=== PATIENT | female | born 1945 | race Caucasian/White ===

== ENCOUNTER → 2023-12-15 11:17 | Outpatient (REF) | payer MEDICARE, SELFPAY | LOC: HWRAD 11:17 | PROVIDERS: ATTENDING PHYSICIAN Physician Assistant Medical; FAMILY PHYSICIAN Internal Medicine | DX: M85.80 Other specified disorders of bone density and structure, unspecified site (principal); Z00.00 Encounter for general adult medical examination without abnormal findings; M85.89 Other specified disorders of bone density and structure, multiple sites | CPT/HCPCS: 77063; 77067; 77080 ==

== ENCOUNTER 2024-01-01 16:26 | Inpatient (IN) | payer MEDICARE, SELFPAY ==
[2024-01-01 08:04] VITALS: BP 134/76
[2024-01-01 08:15] LABS: % Basophils 0.1 % (0-2); % Immature Granulocytes 0.6 % (0-0.5); % Lymphocytes 3.4 % (20.5-51.1); % Monocytes 6.3 % (1.7-9.3); % Neutrophils 89.6 % (42.2-75.2); Absolute Immature Granulocytes 0.1 10^3/uL (0-0.05); Absolute Lymphocytes 0.6 10^3/uL (1.2-3.4); Absolute Neutrophils 14.4 10^3/uL (1.4-6.5); Hemoglobin 13.3 g/dL (12.0-16.0); Mean Corp Hgb Conc. 34.1 g/dL (33.0-37.0); Mean Corpuscular Hgb 29.6 pg (27.0-31.0); Mean Corpuscular Volume 86.9 fL (81.0-99.0); Mean Platelet Volume 8.9 fL (7.4-10.4); Nucleated Red Blood Cells % 0 %; Platelet Count 232 10^3/uL (130-400); Red Blood Cell Count 4.49 10^6/uL (4.20-5.40); Red Cell Dist. Width 12.9 % (11.5-14.5)
[2024-01-01 08:33] LABS: ALT (SGPT) 22 U/L (0-35); AST (SGOT) 31 U/L (14-36); Albumin 4.1 g/dl (3.5-5.0); Alkaline Phosphatase 63 U/L (38-126); Blood Urea Nitrogen 24 mg/dl (7-17); Calcium 10.8 mg/dl (8.4-10.2); Carbon Dioxide 24 mmol/L (22-30); Chloride 106 mmol/L (98-107); Glucose 134 mg/dl (70-99); Lipase 46 U/L (23-300); Potassium 4.5 mmol/L (3.5-5.1); Sodium 135 mmol/L (135-145); Total Bilirubin 1.4 mg/dl (0.2-1.3); Total Protein 6.6 g/dl (6.3-8.2); eGFR 58.39
[2024-01-01 11:19] VITALS: BP 134/81
[2024-01-01] MEDS: ZOFRAN 4 MG IV (11:47)
[2024-01-01] MEDS: NSS 1000 IV ×2 (11:47→16:49)
[2024-01-01] MEDS: DILAUDID 0.5 MG IV (14:15)
[2024-01-01 14:20] VITALS: BP 128/70
--- NOTE | 2024-01-01 15:02 | ED.GENMED ---
History of Present Illness
General
Chief Complaint: Abdominal Symptoms
Source: patient
Exam Limitations: none
Time Seen by Provider: 01/01/24 11:22
Nursing documentation reviewed up to this point in time: agreed with
Travel History
Have you had any contact with someone who has COVID-19?: No
Do you have any symptoms of coronavirus? Fever > 100 degrees, chills, cough, shortness of breath, sore throat, loss of taste or smell, muscle aches, or headache?: No
History of Present Illness
History of Present Illness:
78-year-old female with past ministry of previous uterine cancer status post hysterectomy, diverticulitis presenting to the emergency department today with concerns of diarrhea abdominal pain worsening over the past 24 hours denies specific fevers.
Review of Systems
Review of Systems
Allergies reviewed?: Yes
All Other Systems: ROS reviewed and negative except as documented in HPI and ROS
Phy Exam
Physical Exam
Physical Exam:
GENERAL: Alert , in no apparent distress
EYE: pupils equal and reactive
NECK: Supple, no significant adenopathy.
ENT: o/p clr, mmm.
CARDIAC: Regular rate and rhythm .
LUNGS: Clear breath sounds bilaterally, no acute respiratory distress, no wheezes/rales/rhonchi
ABDOMEN: Left-sided abdominal pain rectal examination with red blood guaiac positive
NEUROLOGICAL: Alert and oriented, no focal neuro deficits
SKIN: Warm and dry, skin intact.
MUSCULOSKELETAL: No edema, well perfused.
PSYCH: Normal and appropriate interaction.
Course
Orders/Labs/Results
Orders:
Orders
01/01/24 08:10
Complete Blood Count/With Diff Urgent
Comprehensive Metabolic Panel Urgent
Lipase Urgent
01/01/24 11:37
CT Abd/Pel (IV only)-DH only Urgent
Comment:
Reason For Exam: left abd pain, gi bleed today
Ondansetron Injectable [Zofran] 4 mg IV NOW STA
01/01/24 11:38
0.9% Sodium Chloride 1000 ml [Nss] 1,000 ml IV BOLUS
01/01/24 11:46
Type+Screen Urgent
01/01/24 14:12
HYDROmorphone [Dilaudid] 0.5 mg IV NOW STA
01/01/24 15:01
Add On- LAB Routine
Tests Added?: lactate
Abnormal Lab Results
01/01/24
08:10
WBC 16.0 H 10^3/uL
(4.8-10.8)
Abs Immat Gran (auto) 0.1 H 10^3/uL
(0-0.05)
Absolute Neuts (auto) 14.4 H 10^3/uL
(1.4-6.5)
Absolute Lymphs (auto) 0.6 L 10^3/uL
(1.2-3.4)
Absolute Monos (auto) 1.0 H 10^3/uL
(0.1-0.6)
Immature Gran % 0.6 H %
(0-0.5)
Neutrophils % 89.6 H %
(42.2-75.2)
Lymphocytes % 3.4 L %
(20.5-51.1)
BUN 24 H mg/dl
(7-17)
Glucose 134 H mg/dl
(70-99)
Calcium 10.8 H mg/dl
(8.4-10.2)
Total Bilirubin 1.4 H mg/dl
(0.2-1.3)
01/01/24 08:10
01/01/24 08:10
Vital Signs
Initial and Last Documented VS:
Initial Vital Signs
Temp Pulse Resp BP Pulse Ox
98.0 F 91 18 134/76 99
01/01/24 08:04 01/01/24 08:04 01/01/24 08:04 01/01/24 08:04 01/01/24 08:04
Last Documented Vital Signs
Temp Pulse Resp BP Pulse Ox
98.0 F 80 18 128/70 93
01/01/24 08:04 01/01/24 14:20 01/01/24 14:20 01/01/24 14:20 01/01/24 14:20
MDM/Problems Addressed
MDM/Problems Addressed:
78-year-old female presenting to the emergency department today with concerns of left-sided abdominal pain with associated diarrhea no fevers otherwise normal vital signs reproducible discomfort to the left side of the abdomen white count elevated
to 16.0 CT scan showing colitis patient does have red blood on rectal examination guaiac positive. Additionally had tumor found to the left. Concerning the moderate bleeding that is described and seen on exam plan to for monitoring of GI bleed.
*Critical Care Note
Total Time (30-74mins, 75-104mins- exclusive of procedures): Not Applicable
ED Attending Note
-
Portions of this chart may have been created with voice recognition software.� Occasional wrong word or��sound alike� substitutions may have occurred due to the inherent limitations of voice recognition software.
Discharge Plan
Departure
Patient Disposition: Admit
Date of Disposition: 01/01/24
Time of Disposition: 15:03
Admit to: Med/Surg
Admit to doctor: Pallavi
Presentation/result/management discussed w/ accepting MD/DO: Hospitalist
Patient with high blood pressure during this ER visit?: No
Condition: Good
Covid-19: Not Applicable
Discharge Problem:
GI bleed, Colitis, Left kidney mass
Prescriptions:
No Action
Theragen Tablet
1 tab PO DAILY PRN (Reason: supplement)
amlodipine 10 mg Tablet
10 mg PO DAILY
ibuprofen [Advil] 200 mg Tablet
200 mg PO DAILYPRN PRN (Reason: mild pain)
lisinopril 5 mg Tablet
10 mg PO DAILY
biotin 5,000 mcg Tablet,Disintegrating
5,000 mcg PO DAILY
vitamin D3-vitamin K2
2 gummy PO DAILY
Referrals:
Tori Servin MD [Family Provider] -
Interventions
Interventions:
*Risk Screen - Suicide Last Done: 01/01/24 11:20
*General Assessment Last Done: 01/01/24 11:20
*Neglect/Abuse Screening Last Done: 01/01/24 11:20
ED- Fall Risk Assessment Last Done: 01/01/24 11:24
*ED COVID-19 Vaccine History Last Done: 01/01/24 11:20
FR-Fwymmn-Kvfadirojy Assessment Last Done: 01/01/24 11:22
ED- Cardiac Assessment Last Done: 01/01/24 11:22
ED- Pulmonary Assessment Last Done: 01/01/24 11:22
Discharge Date and Time
Print Language: NIUEAN
--- NOTE | 2024-01-01 15:40 | HPS.HSE ---
Family Physician
<Sharita Andres PA-C - Last Filed: 01/01/24 16:00>
-
Family Physician: Tori Servin
Chief Complaint
<Sharita Andres PA-C - Last Filed: 01/01/24 16:00>
-
Abdominal Pain and Bloody Diarrhea
History of Present Illness
Patient is a 78 y/o female past medical history of hypertension who presents abdominal pain, and bloody diarrhea. Patient reports she started to feel unwell yesterday with chills and sweats/diaphoresis. She states she felt feverish, but did not
taker her temperature. She then developed in increased lower abdominal cramping which was followed by need to defecate. She states she had a loose/diarrhea-like movement which was initially brown in color, but then she started to pass bright red
blood. She reports multiple episodes of bright red blood per rectum since that time. She denies any prior similar episodes. She reports the refrigerator at her house recently went out, and they have been eating food out of coolers. She denies
any family members with similar symptoms. She denies any recent travel or recent antibiotics.
Medical History
<Sharita Andres PA-C - Last Filed: 01/01/24 16:00>
Past Medical History
Past Medical History: Reports Other
Additional Past Medical History:
Essential Hypertension
Uterine Cancer
Past Surgical History: Reports Other
Additional Past Surgical History:
Hysterectomy
Social History
Tobacco: Former Smoker (Quit about 40 years ago)
Alcohol: None
Family History
Family History: Not pertinent
Allergies / Home Medications
Allergies reflects when Allergies were last updated in [facility].
Home Medications with original date entered in [facility]
Allergy/Medication List:
Allergies
Allergy/AdvReac Type Severity Reaction Status Date / Time
codeine AdvReac Nausea / Verified 01/01/24 08:03
Vomiting
Home Medications
amlodipine 10 mg tablet 10 mg PO DAILY 01/01/24
biotin 5,000 mcg disintegrating tablet 5,000 mcg PO DAILY 01/01/24
ibuprofen 200 mg tablet (Advil) 200 mg PO DAILYPRN PRN mild pain 01/01/24
lisinopril 5 mg tablet 10 mg PO DAILY 01/01/24
therapeutic multivitamin 1 tab PO DAILY PRN supplement 01/01/24
vitamin D3-vitamin K2 2 gummy PO DAILY 01/01/24
Review of Systems
<Sharita Andres PA-C - Last Filed: 01/01/24 16:00>
-
A 12 point ROS was completed and negative except as noted: Yes
Constitutional: Reports Chills
Respiratory: Denies Cough or Trouble Breathing
Cardiac: Denies Chest Pain or Palpitations
Abdomen/GI: Reports See HPI
Physical Exam
<Sharita Andres PA-C - Last Filed: 01/01/24 16:00>
Vital Signs
Vital Signs
Temp Pulse Resp BP Pulse Ox
98.0 F 80 18 128/70 93
01/01/24 08:04 01/01/24 14:20 01/01/24 14:20 01/01/24 14:20 01/01/24 14:20
Physical Exam
General: Comfortable and Conversant
HEENT: Anicteric and Moist mucous membranes
Respiratory: Clear and Non Labored Respirations
Cardiac: S1/S2 and Regular Rhythm
GI: Soft, Tender (Mild LUQ and Moderate LLQ without rebound or guarding) and Other (Slightly hypoactive bowel sounds)
Musculoskeletal: No Clubbing, No Cyanosis and No Edema
Skin: Warm and Dry
Neuro: Awake, Alert, Oriented and Nonfocal/grossly intact
Psych: Calm
Laboratory Results
<Sharita Andres PA-C - Last Filed: 01/01/24 16:00>
-
01/01/24 08:10
01/01/24 08:10
Laboratory Results
Total Bilirubin 1.4 mg/dl (0.2-1.3) H 01/01/24 08:10
AST 31 U/L (14-36) 01/01/24 08:10
ALT 22 U/L (0-35) 01/01/24 08:10
Alkaline Phosphatase 63 U/L (38-126) 01/01/24 08:10
Lipase 46 U/L (23-300) 01/01/24 08:10
Data Reviewed
<Sharita Andres PA-C - Last Filed: 01/01/24 16:00>
-
Lab Data: Labs Reviewed by me
Impression/Plan
<Sharita Andres PA-C - Last Filed: 01/01/24 16:00>
-
GI Bleed secondary to Colitis, possibly Ischemic vs Infectious
-Check Stool cultures
-Check Lactic Acid
-Allow clear liquids
-Trend H&H
-Start Unasyn
Left Renal Mass
-Patient will need MRI as outpatient
Essential Hypertension
-Continue amlodipine and lisinopril with hold parameters
Hx Uterine CA s/p Hysterectomy
DVT proph: SCDs
Code Status: Full Code
<Ruben Dewey DO - Last Filed: 01/01/24 16:08>
-
GI Bleed secondary to Colitis, possibly Ischemic vs Infectious
-Check Stool cultures
-Check Lactic Acid
-Allow clear liquids
-Trend H&H
-Start Unasyn
Left Renal Mass
-Patient will need MRI as outpatient
Essential Hypertension
-Continue amlodipine and lisinopril with hold parameters
Hx Uterine CA s/p Hysterectomy
DVT proph: SCDs
Code Status: Full Code
Attending note:
Patient seen and examined and discussed with SKIP Rodriguez, and I agree with her note.
Gen-AAOx3, NAD
HEENT-NC, AT, anicteric, clear oral mm
Neck-supple
CV-reg, no M, +S1/S2
Lungs-clear B/L
Abd-soft, nondistended, mild left-sided abdominal tenderness, no guarding or rebound
Ext-no edema
Musculoskeletal-no cyanosis, clubbing
Skin-warm and dry
Neuro-grossly non-focal
Psych-calm, cooperative
Acute left-sided hemorrhagic colitis - hemodynamically stable. Looks nontoxic. Suspect likely ischemic colitis. Rule out infectious colitis but seems less likely. Check lactic acid level.
Admit to MedSurg, check stool studies, continue IV fluids. Clear liquids as tolerated. Broad-spectrum antibiotics with Unasyn IV. Monitor hemoglobin. Currently normal. Denies history of similar symptoms in the past. Last colonoscopy about 10
years ago, showed diverticulosis. Does have internal hemorrhoids. Has never had diverticulitis.
Leukocytosis noted. Afebrile.
Incidental left renal mass -2.[address] scan. Discussed findings with patient, recommend outpatient workup including renal MRI.
Hypercalcemia -10.8. Possibly due to volume depletion. Albumin is normal. Recheck tomorrow and if still elevated will need intact PTH checked.
Essential hypertension -resume home meds.
Full code
[2024-01-01 16:09] LABS: Hematocrit 39.9 % (37.0-47.0); Hemoglobin 13.1 g/dL (12.0-16.0)
[2024-01-01 16:19] VITALS: BMI 31.6
[2024-01-01] MEDS: UNASYN IV ×2 (17:02→23:20)
[2024-01-02] VITALS: BP 113/71
[2024-01-02 00:47] LABS: Hematocrit 35.5 % (37.0-47.0); Hemoglobin 11.8 g/dL (12.0-16.0)
[2024-01-02] MEDS: NSS 1000 IV ×2 (03:14→16:08)
[2024-01-02] MEDS: UNASYN IV ×4 (03:15→21:11)
[2024-01-02 06:13] LABS: Hematocrit 35.8 % (37.0-47.0); Hemoglobin 11.7 g/dL (12.0-16.0); Mean Corp Hgb Conc. 32.7 g/dL (33.0-37.0); Mean Corpuscular Hgb 30.2 pg (27.0-31.0); Mean Corpuscular Volume 92.3 fL (81.0-99.0); Mean Platelet Volume 9.5 fL (7.4-10.4); Platelet Count 177 10^3/uL (130-400); Red Blood Cell Count 3.88 10^6/uL (4.20-5.40); Red Cell Dist. Width 13.1 % (11.5-14.5); White Blood Cell Count 15.1 10^3/uL (4.8-10.8)
[2024-01-02 06:41] LABS: Blood Urea Nitrogen 13 mg/dl (7-17); Carbon Dioxide 26 mmol/L (22-30); Chloride 105 mmol/L (98-107); Estimated Creatinine Clearance 60 ml/min; Glucose 112 mg/dl (70-99); Potassium 3.6 mmol/L (3.5-5.1); Sodium 136 mmol/L (135-145); eGFR > 60.00
[2024-01-02] MEDS: ZESTRIL PO (08:02)
[2024-01-02] MEDS: NORVASC PO (08:02)
[2024-01-02 08:29] LABS: Hematocrit 32.9 % (37.0-47.0); Hemoglobin 11.2 g/dL (12.0-16.0)
--- NOTE | 2024-01-02 11:24 | W.PN.HOSP.TC ---
Today's Communication/Plan
-
Continue antibiotics
Monitor hemoglobin
GI consult
Assessment / Plan
Assessment / Plan
Gen-AAOx3, NAD
HEENT-NC, AT, anicteric, clear oral mm
Neck-supple
CV-reg, no M, +S1/S2
Lungs-clear B/L
Abd-soft, mild distention, mild left-sided tenderness, no guarding
Ext-no edema
Musculoskeletal-no cyanosis, clubbing
Skin-warm and dry
Neuro-grossly non-focal
Psych-calm, cooperative
Acute left-sided hemorrhagic colitis - hemodynamically stable. Looks nontoxic. Suspect likely ischemic colitis. Rule out infectious colitis but seems less likely. Inflammatory colitis seems less likely. Lactic acid level normal. Stool studies
pending.
Continue empiric antibiotics. White blood cell count trending down. Afebrile. Consult GI.
Acute blood loss anemia -due to acute lower GI bleed as above. Hemoglobin 11.2. Monitor for now. Hemodynamically stable.
Incidental left renal mass -2.[address] scan. Discussed findings with patient, recommend outpatient workup including renal MRI.
Hypercalcemia - improved. Likely due to volume depletion.
Essential hypertension -resume home meds.
Full code
Anticipated Discharge: > 48 hours
Subjective/Interval History
-
Date of Service: January 02, 2024
Patient seen and examined. Passed more bright red blood this morning. Less abdominal pain today.
Objective Data
-
Labs:
Laboratory Results
01/02/24 01/02/24 01/02/24
00:25 05:49 08:11
WBC 15.1 H
Hgb 11.8 L 11.7 L 11.2 L
Hct 35.5 L 35.8 L 32.9 L
Plt Count 177 D
Sodium 136
Potassium 3.6
Chloride 105
Carbon Dioxide 26
BUN 13
Creatinine 0.8
Glucose 112 H
Calcium 10.0
Vital Signs:
Vital Signs
Temp Pulse Resp BP Pulse Ox
98.4 F 77 16 108/63 95
01/02/24 08:01 01/02/24 08:02 01/02/24 00:00 01/02/24 08:02 01/02/24 00:00
I&O
01/01/24 01/02/24 01/03/24
06:59 06:59 06:59
Intake Total 1480 / 1480
Balance 1480 / 1480
Review of Systems
-
History Source: Patient
All other systems: Reviewed and negative
--- NOTE | 2024-01-02 12:20 | CON.GI ---
Addendum entered and electronically signed by Taran Armando MD 01/02/24 15:04:
Patient seen and examined, agree with nurse practitioner. Patient presents with acute onset of abdominal pain and bloody stools. She was in her usual state of health until she had what sound like a vagal episode with diaphoresis sweating,
lightheadedness, then had abdominal pain in the left side with bloody stools. CT scan showed colitis at the splenic flexure and descending colon as well as incidental renal lesion that was noted. She denies any sick contacts, recent antibiotics.
She did have some issues with refrigerator recently though did not know any obvious spoiled foods. Her colonoscopy last time about 10 years ago [place] was unremarkable by report. She is little better though still having some bloating and some
mild discomfort. On exam she does have some mild left sided tenderness though no rebound or guarding. At this point most likely etiology is watershed ischemic colitis, possibly precipitated by her increased lisinopril dose recently or vagal
reaction. Her exam is benign and she will remain stable. Will continue clears for now as well as antibiotics, await stool studies. Assuming she continues to improve and able to advance diet tomorrow, follow-up in the office within the next month
and plan to do colonoscopy in 6 to 8 weeks.
Original Note:
Consultation
-
Date/Time Consultation Requested: 01/02/24 1120
Date/Time Consultation Performed: 01/02/24 1220
Requesting Provider: Ruben Dewey DO
Performing Provider: ABIDA Vo, Be Armando MD
Reason for Consultation: colitis
Medical History
Chief Complaint / HPI
Chief Complaint: rectal bleedingd
History of Present Illness:
Pt is a 78yo with hx uterine CA s/p surgery and XRT, throat cyst removal, diverticulosis, HTN, presents to with onset of sweats with abdominal pain then blood in stools. Pt states symptoms started 5/3 with sweat and pain with bleeding. She
was improving then passed further blood 4/5. On admission hbg 13.1 with drop in 11.8 after admission and cT with noted colitis in splenic flexure and descending colon,hepatomegaly and renal lesion concern for malignancy. Pt admit no hx colitis in
past. No recent travel or antibiotics. She had recent issue with refrigerator and may have had bad food but she did not ingest food that appeared tainted. She has occasional constipation with use of smooth move tea or prunes. She otherwise
denies any dysphagia, GERD, diarrhea, or black stools. Hx colonoscopy 10 + years ago in [place] with diverticulosis. Pt also admits to recnet increased dose of Lisinopril several weeks ago.
Past Medical History
Past Medical History: Cancer (uterine CA with prior robotic hysterectomy and XRT), HTN and Other (vitamin D deficiency)
Past Surgical History: Other (throat cyst removal)
Social History
Tobacco: Non-Smoker
Alcohol: None
Drug: None
Personal:
Living: With Family
Employment: Retired
Family History
Family History: Other (no family hx colon CA or polyps)
Allergies / Home Medications
Allergy/AdvReac Type Severity Reaction Status Date / Time
codeine AdvReac Nausea / Verified 01/01/24 08:03
Vomiting
�Medication �Instructions �Recorded
amlodipine 10 mg tablet 10 mg PO DAILY 01/01/24
biotin 5,000 mcg disintegrating 5,000 mcg PO DAILY 01/01/24
tablet
ibuprofen 200 mg tablet (Advil) 200 mg PO DAILYPRN PRN mild pain 01/01/24
lisinopril 5 mg tablet 10 mg PO DAILY 01/01/24
therapeutic multivitamin 1 tab PO DAILY PRN supplement 01/01/24
vitamin D3-vitamin K2 2 gummy PO DAILY 01/01/24
Review of Systems
-
History Source: Patient
Constitutional: Reports Other (sweats with onset of symptoms)
EENT: Reports No Symptoms
Respiratory: Reports No Symptoms
Cardiac: Reports No Symptoms
Abdomen/GI: Reports Abdominal Pain (achy pain) and Bloody Stools (with clots )
: Reports No Symptoms
Musculoskeletal: Reports No Symptoms
Skin: Reports No Symptoms
Neurological: Reports No Symptoms
Endocrine: Reports No Symptoms
Hematologic/Lymphatic: Reports Bleeding
Vital Signs
Temp Pulse Resp BP Pulse Ox
98.4 F 77 16 108/63 95
01/02/24 08:01 01/02/24 08:02 01/02/24 00:00 01/02/24 08:02 01/02/24 00:00
Physical Exam
Exam
General: Well Developed, Well Nourished and No Apparent Distress
HEENT: Normocephalic and Anicteric
Respiratory: Clear
Cardiac: Regular Rhythm
GI: Soft, Non Distended and Tender (minimal )
Rectal: Deferred by Provider
Musculoskeletal: No Clubbing and No Cyanosis
Skin: Warm and Dry
Neuro: Awake, Alert and AO x 3
Psych: Calm
Results
WBC 15.1 10^3/uL (4.8-10.8) H 01/02/24 05:49
Hgb 11.2 g/dL (12.0-16.0) L 01/02/24 08:11
Hct 32.9 % (37.0-47.0) L 01/02/24 08:11
MCV 92.3 fL (81.0-99.0) 01/02/24 05:49
Plt Count 177 10^3/uL (130-400) D 01/02/24 05:49
Absolute Neuts (auto) 14.4 10^3/uL (1.4-6.5) H 01/01/24 08:10
Sodium 136 mmol/L (135-145) 01/02/24 05:49
Potassium 3.6 mmol/L (3.5-5.1) 01/02/24 05:49
Chloride 105 mmol/L (98-107) 01/02/24 05:49
Carbon Dioxide 26 mmol/L (22-30) 01/02/24 05:49
BUN 13 mg/dl (7-17) 01/02/24 05:49
Creatinine 0.8 mg/dL (0.6-1.0) 01/02/24 05:49
Calcium 10.0 mg/dl (8.4-10.2) 01/02/24 05:49
Total Bilirubin 1.4 mg/dl (0.2-1.3) H 01/01/24 08:10
AST 31 U/L (14-36) 01/01/24 08:10
ALT 22 U/L (0-35) 01/01/24 08:10
Alkaline Phosphatase 63 U/L (38-126) 01/01/24 08:10
Lipase 46 U/L (23-300) 01/01/24 08:10
Diagnostic Image Results:
01/01/24 CT Abd/Pel (IV only)- only
Although markedly limited without intravenous contrast findings are seen compatible with colitis involving the splenic flexure, descending colon and sigmoid. There is no findings to confirm colonic pneumatosis, intestinal obstruction or free air.
Small volume free fluid in the abdomen and true pelvis.
Mild hepatomegaly.
Findings suspicious for approximate 2.5 cm solid partially exophytic lower pole left renal mass suspicious for malignancy.
Bilateral subcentimeter low-attenuation renal lesions too small to characterize.
Prior GI Procedures:
Colonoscopy: 10+ years ago with diverticulosis
Assessment / Plan
-
Pt is a 78yo with hx uterine CA s/p surgery and XRT, throat cyst removal, diverticulosis, HTN, presents to with onset of sweats with abdominal pain then blood in stools. Pt states symptoms started 5/3 with sweat and pain with bleeding. She
was improving then passed further blood 4/5. On admission hbg 13.1 with drop in 11.[address] with noted colitis in splenic flexure and descending colon,hepatomegaly and renal lesion concern for malignancy. Pt admit no hx colitis in
past. No recent travel or antibiotics. She had recent issue with refrigerator and may have had bad food but she did not ingest food that appeared tainted. She has occasional constipation with use of smooth move tea or prunes. She otherwise
denies any dysphagia, GERD, diarrhea, or black stools. Hx colonoscopy 10 + years ago in [place] with diverticulosis. Pt also admits to recent increased dose of Lisinopril several weeks ago.
-colitis with rectal bleeding
-anemia - acute blood loss
-leukocytosis
-renal mass
other medical problems:
-uterine CA with prior robotic surgery and XRT
-throat cyst removal
-diverticulosis
-HTN with recent medication adjustment
PLAN:
etiology of bleeding with abdominal pain related to colitis -ischemic vs infectious vs less likely IBD or radiation related with hx prior radiation therapy
check stool cultures- will add c-diff, Giardia/crypto for completeness
trend hbg and stool records
cont abx
maintain adequate perfusion
cont clear diet for now as still passing blood this am
if continued pain, bleeding consider flex during admission but if improving OP follow up 3-4 week then colonoscopy in 6 -8 weeks -- sent message to office to arrange GI follow up after discharge
work up for renal mass per hospitalist -- plan for OP work up
-
-
Thank you for consultation and allowing me to participate in the patient's care. Please call the telecommunications field technician GI physician during the after hours with any questions or concerns.
--- NOTE | 2024-01-02 13:20 | PTCARENOTE ---
Report called to [facility] RN. Pt transported to rm [id number] with all belongings.
[2024-01-02 13:25] VITALS: BP 126/65
--- NOTE | 2024-01-02 15:04 | W.PN.UPDATE ---
Update Note
Progress Note Update
For billing purposes
--- NOTE | 2024-01-02 15:54 | CM ---
Reviewed the chart notes and spoke with the patient at the bedside. The patient resides with her spouse in a two story home with three steps to enter. The patient reports no DME/VN/SNF in the past. The patient confirmed her [facility] of choice is
[facility]. [facility] continues to be available to patient/family and is monitoring medical plan for needs at discharge.
Plan: Discharge to home no needs.
[2024-01-02 16:30] VITALS: BP 102/66
[2024-01-02 23:43] VITALS: BP 122/59
[2024-01-03] MEDS: NSS IV (00:09)
[2024-01-03] MEDS: UNASYN IV ×2 (04:06→09:47)
[2024-01-03 07:25] VITALS: BP 146/78
--- NOTE | 2024-01-03 08:44 | W.PN.GI.CBS2 ---
Today's Communication / Plan
-
See assessment and plan for details.
Assessment / Plan
-
1. 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 At this point will await a.m. labs, will advance to low residue diet,
though if labs okay intolerant that is okay to DC from GI standpoint without antibiotics. Will follow-up in the office as scheduled, plan colonoscopy to follow.
Subjective
Subjective
Date of Service: January 03, 2024
Patient feeling much better, much less pain, no significant diarrhea or bleeding, tolerated clears without difficulty, no fevers overnight.
Objective
Data Reviewed
Laboratory Data:
Laboratory Results
Total Bilirubin 1.4 mg/dl (0.2-1.3) H 01/01/24 08:10
AST 31 U/L (14-36) 01/01/24 08:10
ALT 22 U/L (0-35) 01/01/24 08:10
Alkaline Phosphatase 63 U/L (38-126) 01/01/24 08:10
Lipase 46 U/L (23-300) 01/01/24 08:10
Vital Signs and I&O:
Vital Signs
Temp Pulse Resp BP Pulse Ox
98.3 F 75 16 146/78 99
01/03/24 07:25 01/03/24 07:25 01/03/24 07:25 01/03/24 07:25 01/03/24 07:25
I&O
01/02/24 01/03/24 01/04/24
06:59 06:59 06:59
Intake Total 1480 / 1480 800 / 800
Balance 1480 / 1480 800 / 800
Physical Exam
Physical Exam
General: NAD
Abdomen: normal bowel sounds, soft, no tenderness, no masses or bruits, no ascites
[2024-01-03] MEDS: ZESTRIL 10 MG PO (08:52)
[2024-01-03] MEDS: NORVASC 10 MG PO (08:52)
[2024-01-03 09:17] LABS: % Basophils 0.3 % (0-2); % Eosinophils 0.9 % (0-6); % Immature Granulocytes 0.5 % (0-0.5); % Lymphocytes 9.7 % (20.5-51.1); % Neutrophils 82.6 % (42.2-75.2); Absolute Eosinophils 0.1 10^3/uL (0-0.7); Absolute Immature Granulocytes 0.1 10^3/uL (0-0.05); Absolute Lymphocytes 0.9 10^3/uL (1.2-3.4); Absolute Monocytes 0.6 10^3/uL (0.1-0.6); Absolute Neutrophils 7.7 10^3/uL (1.4-6.5); Hematocrit 36.8 % (37.0-47.0); Hemoglobin 11.8 g/dL (12.0-16.0); Mean Corp Hgb Conc. 32.1 g/dL (33.0-37.0); Mean Corpuscular Hgb 29.8 pg (27.0-31.0); Mean Corpuscular Volume 92.9 fL (81.0-99.0); Mean Platelet Volume 10.1 fL (7.4-10.4); Nucleated Red Blood Cells % 0 %; Platelet Count 202 10^3/uL (130-400); Red Blood Cell Count 3.96 10^6/uL (4.20-5.40); Red Cell Dist. Width 12.9 % (11.5-14.5); White Blood Cell Count 9.4 10^3/uL (4.8-10.8)
[2024-01-03 09:40] LABS: Blood Urea Nitrogen 9 mg/dl (7-17); Calcium 10.4 mg/dl (8.4-10.2); Carbon Dioxide 28 mmol/L (22-30); Chloride 104 mmol/L (98-107); Estimated Creatinine Clearance 54 ml/min; Glucose 90 mg/dl (70-99); Potassium 3.9 mmol/L (3.5-5.1); Sodium 138 mmol/L (135-145); eGFR > 60.00
[2024-01-03] MEDS: FLUSH (NSS) 2 FLUSH IV (09:47)
--- NOTE | 2024-01-03 12:27 | W.DS.TRANS ---
DC Summary - [facility]ler
-
Discharge Instructions:
Discharge Diagnosis/Procedures Ischemic colitis, left renal mass
Diet Low Residue
Activity As tolerated
Driving Restrictions As prior to admission
Bathing Restrictions None
Blood Work CBC next week with your primary care doctor
Instructions:
Stand-Alone Forms:
Changes to Home Medications: No
Discharge Medications:
DC Medications w/original date entered in [facility]
amlodipine 10 mg tablet 10 mg PO DAILY Blood Pressure 01/01/24
biotin 5,000 mcg disintegrating tablet 5,000 mcg PO DAILY Supplement 01/01/24
ibuprofen 200 mg tablet (Advil) 200 mg PO DAILYPRN PRN mild pain 01/01/24
therapeutic multivitamin 1 tab PO DAILY PRN supplement 01/01/24
vitamin D3-vitamin K2 2 gummy PO DAILY Supplement 01/01/24
lisinopril 10 mg tablet 10 mg PO DAILY #0 tabs 01/03/24
Home Medication Changes
Pending Results: No
--- NOTE | 2024-01-03 12:42 | W.PN.HOSP.TC ---
Addendum entered and electronically signed by Ruben Dewey DO 01/03/24 13:50:
Hypercalcemia -mild PTH elevation noted. Possibly primary hyperparathyroidism. Discussed with patient on the phone and recommend outpatient follow-up. May need to see endocrinology. Documented on discharge instructions.
Original Note:
Today's Communication/Plan
-
discharge
Assessment / Plan
Assessment / Plan
Gen-AAOx3, NAD
HEENT-NC, AT, anicteric, clear oral mm
Neck-supple
CV-reg, no M, +S1/S2
Lungs-clear B/L
Abd-soft, mild distention, mild left-sided tenderness, no guarding
Ext-no edema
Musculoskeletal-no cyanosis, clubbing
Skin-warm and dry
Neuro-grossly non-focal
Psych-calm, cooperative
Acute left-sided hemorrhagic colitis - hemodynamically stable. Looks nontoxic. Suspect likely ischemic colitis. Tolerating solid food. Stable for discharge. Outpatient follow up with GI for colonoscopy. Ok to stop antibiotics, agree with GI. No
bleeding today.
Acute blood loss anemia -due to acute lower GI bleed as above. Hemoglobin now stable, 11.8.
Incidental left renal mass -2.[address] scan. Discussed findings with patient, recommend outpatient workup including renal MRI. Follow up with urology.
Hypercalcemia -10.4 today, iPTH pending. Outpatient follow up.
Essential hypertension -stable.
Full code
Dispo - med stable for d/c home today.
33 min spent in discharge process.
Anticipated Discharge: Today
Subjective/Interval History
-
Date of Service: January 03, 2024
Patient seen/examined. Looks ready for discharge. Mild abdominal discomfort but overall improved.
Objective Data
-
Labs:
Laboratory Results
01/03/24
08:02
WBC 9.4
Hgb 11.8 L
Hct 36.8 L
Plt Count 202
Sodium 138
Potassium 3.9
Chloride 104
Carbon Dioxide 28
BUN 9
Creatinine 0.9
Glucose 90
Calcium 10.4 H
Vital Signs:
Vital Signs
Temp Pulse Resp BP Pulse Ox
98.3 F 75 16 146/78 99
01/03/24 07:25 01/03/24 07:25 01/03/24 07:25 01/03/24 07:25 01/03/24 08:30
I&O
01/02/24 01/03/24 01/04/24
06:59 06:59 06:59
Intake Total 1480 / 1480 800 / 800
Balance 1480 / 1480 800 / 800
Review of Systems
-
History Source: Patient
All other systems: Reviewed and negative
[2024-01-03 12:47] LABS: Intact PTH 99.2 pg/ml (13.6-85.8)
== END 2024-01-03 14:11 | disposition home or self-care (01) | DRG 394 ==
LOC: 2 NORTH 16:26
PROVIDERS: Physician Assistant Medical; Student in an Organized Health Care Education/Training Program; ADMITTING PHYSICIAN Hospitalist; CONSULT PHYSICIAN Internal Medicine Gastroenterology; EMERGENCY PHYSICIAN Emergency Medicine; FAMILY PHYSICIAN Internal Medicine
DX: K55.039 Acute (reversible) ischemia of large intestine, extent unspecified (principal); D62 Acute posthemorrhagic anemia; N28.89 Other specified disorders of kidney and ureter; I10 Essential (primary) hypertension; K59.00 Constipation, unspecified; K57.30 Diverticulosis of large intestine without perforation or abscess without bleeding; K64.8 Other hemorrhoids; E21.0 Primary hyperparathyroidism; Z87.891 Personal history of nicotine dependence; Z88.5 Allergy status to narcotic agent; Z85.42 Personal history of malignant neoplasm of other parts of uterus; Z90.710 Acquired absence of both cervix and uterus; Z92.3 Personal history of irradiation
CPT/HCPCS: 74177; 80048; 80053; 83605; 83690; 83970; 85014; 85018; 85025; 85027; 86850; 86900; 86901; 87045; 87046; 87077; 87324; 87328; 87329; 87427; 87449; 89055; 96361; 96374; 96375; 99285; Q9967

== ENCOUNTER → 2024-12-07 09:55 | Outpatient (REF) | payer MEDICARE, SELFPAY | LOC: HWEVLT 09:55 | PROVIDERS: ATTENDING PHYSICIAN Radiology Vascular & Interventional Radiology | DX: I83.892 Varicose veins of left lower extremity with other complications (principal) | CPT/HCPCS: 93971 ==

== ENCOUNTER → 2024-12-15 07:53 | Outpatient (REF) | payer MEDICARE, SELFPAY | LOC: HWWDC 07:53 | PROVIDERS: ATTENDING PHYSICIAN Nurse Practitioner | DX: Z12.31 Encounter for screening mammogram for malignant neoplasm of breast (principal) | CPT/HCPCS: 77063; 77067 ==

== ENCOUNTER → 2025-01-24 15:02 | Outpatient (REF) | payer MEDICARE, SELFPAY | LOC: HWRAD 15:02 | PROVIDERS: ATTENDING PHYSICIAN Internal Medicine Endocrinology, Diabetes & Metabolism; FAMILY PHYSICIAN Internal Medicine | DX: E04.1 Nontoxic single thyroid nodule (principal) | CPT/HCPCS: 76536 ==

== ENCOUNTER → 2025-03-03 07:35 | Outpatient (REF) | payer MEDICARE, SELFPAY | LOC: WDC 07:35 | PROVIDERS: ATTENDING PHYSICIAN Nurse Practitioner | DX: R92.30 Dense breasts, unspecified (principal) | CPT/HCPCS: 76641 ==

== ENCOUNTER → 2025-03-22 08:10 | Outpatient (REF) | payer MEDICARE, SELFPAY | LOC: HWEVLT 08:10 | PROVIDERS: ATTENDING PHYSICIAN Radiology Vascular & Interventional Radiology | DX: I83.892 Varicose veins of left lower extremity with other complications (principal) | CPT/HCPCS: 36478; C1769 ==

== ENCOUNTER → 2025-04-04 08:12 | Outpatient (REF) | payer MEDICARE, SELFPAY | LOC: HWEVLT 08:12 | PROVIDERS: ATTENDING PHYSICIAN Radiology Diagnostic Radiology | DX: I83.892 Varicose veins of left lower extremity with other complications (principal) | CPT/HCPCS: 93971 ==